=== PATIENT | male | born 1990 | race Hispanic/Latino ===

== ENCOUNTER 2018-09-01 16:20 | Emergency (ER) | payer SELFPAY ==
[2018-09-01] MEDS ORDERED: Ibuprofen 800 MG TAB ONE (16:43)
[2018-09-01] MEDS ORDERED: Acetaminophen 500 MG TAB ONE (16:43)
[2018-09-01] MEDS ORDERED: Lidocaine 1% w/Epinephrine 1:100K 30 ML VIAL ONE ×3 (17:05→18:50)
[2018-09-01] MEDS ORDERED: Vancomycin HCl 500 MG VIAL ONE (17:19)
[2018-09-01] MEDS ORDERED: Sodium Chloride 0.9% 500 ML ONE (17:19)
[2018-09-01 17:23] LABS: Anion Gap 17 mmol/L (10-20); BUN (Urea Nitrogen) 12 mg/dL (8.9-20.6); Calc. Creatinine Clearance 0 mL/min (70-130); Calcium 9.3 mg/dL (7.8-10.44); Carbon Dioxide 21 mmol/L (22-29); Chloride 104 mmol/L (98-107); Estimated GFR-MDRD Greater than 90; Glucose 103 mg/dL (70-105); Potassium 3.7 mmol/L (3.5-5.1); Sodium 138 mmol/L (136-145)
[2018-09-01 17:32] LABS: Hemoglobin 15.3 g/dL (14.0-18.0); Mean Corpuscular HGB CONC 32.9 g/dL (32.0-36.0); Mean Corpuscular Hemoglobin 29.2 pg (27.0-31.0); Mean Corpuscular Volume 88.9 fL (78.0-98.0); Mean Platelet Volume 9.9 fL (7.4-10.4); Platelet Count 255 thou/uL (130-400); RBC Distribution Width 12.6 % (11.5-14.5); Red Blood Cell (RBC) Count 5.23 mill/uL (4.70-6.10); White Blood Cell (WBC) Count 20.7 thou/uL (4.8-10.8)
[2018-09-01 18:05] LABS: Band 1 % (5-11); Eosinophils 1 % (0-10); Lymphocytes 22 % (21-51); MDiff Complete? YES; Monocytes 7 % (0-10); Neutrophil 69 % (42-75); Platelet Morphology Comment Appears Adequate; RBC Morphology Normal
[2018-09-01] MEDS ORDERED: diphenhydrAMINE 50 MG/ML VIAL ONE (18:29)
[2018-09-01] MEDS ORDERED: CEFAZOLIN 1 GM VIAL ONE (18:46)
[2018-09-01] MEDS ORDERED: Sodium Chloride 0.9% 100 ML ONE (18:46)
[2018-09-01] MEDS ORDERED: Adacel (T-DAP) 0.5 ML SYRINGE ONE (19:03)
== END 2018-09-01 19:45 | disposition home or self-care (01) ==
LOC: NAV ERS 16:20
DX: L02.415 Cutaneous abscess of right lower limb (principal); L03.115 Cellulitis of right lower limb; Z87.891 Personal history of nicotine dependence
CPT/HCPCS: 10060; 80048; 83605; 85025; 87040; 90471; 90715; 96365; 96367; 96375; J0690; J1200; J2001; J3370; J3490; J7050